=== PATIENT | male | born 1985 ===

== ENCOUNTER 2016-11-29 20:09 | Emergency (ER) | payer SELFPAY ==
[2016-11-29 20:20] VITALS: BP 113/75; PULSE 69; RESP 16; TEMP 98; O2SAT 98
--- NOTE | 2016-11-29 20:45 | ED PDOC ---
HPI: Back Time Seen by Provider: 11/29/16 20:20 Chief Complaint (Nursing): Back Pain Chief Complaint (Provider): Back Pain History Per: Patient History/Exam Limitations: no limitations Onset/Duration Of Symptoms: Days (x 1 month) Current Symptoms Are (Timing): Still Present Additional Complaint(s): Adán Morris is a 31 y/o male with no past medical history who presents to the ED complaining of back pain that radiates down the right leg with associated numbness, ongoing for 1 month. He states noticing symptoms after waking up one day with a bump on his back. He went to a [facility] and was prescribed muscle relaxers and Motrin with no imaging done. His pain has worsened, impeding his ability to walk. The pain is alleviated by laying down. Patient denies fever, nausea, vomiting, diarrhea, and injury to the back. If he forgets to take daily Motrin, he experiences groin pain. Sister reports the back mass has increased in size over the past month. 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 PMD: Unknown Past Medical History Reviewed: Historical Data, Nursing Documentation, Vital Signs Vital Signs: Last Vital Signs Temp 98 F 11/29/16 20:17 Pulse 69 11/29/16 20:17 Resp 16 11/29/16 20:17 BP 113/75 11/29/16 20:17 Pulse Ox 98 11/29/16 20:17 - Medical History PMH: No Chronic Diseases - Surgical History Surgical History: No Surg Hx - Family History Family History: States: Unknown Family Hx - Home Medications Home Medications: Ambulatory Orders Medication Instructions Recorded Cyclobenzaprine [Cyclobenzaprine 10 mg PO BID #14 tab 11/29/16 HCl] Ibuprofen [Motrin] 400 mg PO Q6 #30 tab 11/29/16 - Allergies Allergies/Adverse Reactions: Allergies Allergy/AdvReac Type Severity Reaction Status Date / Time No Known Allergies Allergy Verified 11/29/16 20:21 Review of Systems ROS Statement: Except As Marked, All Systems Reviewed And Found Negative Constitutional: Negative for: Fever, Other (Injury) Gastrointestinal: Negative for: Nausea, Vomiting, Abdominal Pain, Diarrhea Genitourinary Male: Negative for: Dysuria, Frequency Musculoskeletal: Positive for: Back Pain, Leg Pain (radiates down right leg) Neurological: Positive for: Numbness Physical Exam - Reviewed Nursing Documentation Reviewed: Yes Vital Signs Reviewed: Yes - Physical Exam Appears: Positive for: Non-toxic, No Acute Distress Head Exam: Positive for: ATRAUMATIC, NORMAL INSPECTION, NORMOCEPHALIC Skin: Positive for: Normal Color, Warm, Dry Eye Exam: Positive for: EOMI, Normal appearance, PERRL ENT: Positive for: Normal ENT Inspection Neck: Positive for: Normal, Painless ROM, Supple Cardiovascular/Chest: Positive for: Regular Rate, Rhythm. Negative for: Murmur Respiratory: Positive for: Normal Breath Sounds. Negative for: Accessory Muscle Use, Respiratory Distress Gastrointestinal/Abdominal: Positive for: Normal Exam, Soft. Negative for: Tenderness Back: Positive for: Vertebral Tenderness (Midline tenderness), Other (A non- mobile swelling is noted, 2 x 3 cm, at paravertebral lumbar region. No erythema) . Negative for: Normal Inspection Extremity: Positive for: Tenderness (Right leg, straight line) Neurologic/Psych: Positive for: Alert, Oriented - ECG O2 Sat by Pulse Oximetry: 98 (RA) Pulse Ox Interpretation: Normal Medical Decision Making Medical Decision Making: Time: 20:35 Initial Plan: --Ordered CT Lumbar Spine w/o contrast ct: IMPRESSION: 1. Tiny linear lucency along the right superior facet of S1 could possibly reflect fracture versus artifact. Clinical correlation recommended. 2. At L5-S1, disc bulge results in mild canal and mild bilateral foraminal stenosis. 3. At L4-L5, disc bulge results in mild canal and mild bilateral foraminal stenosis. Thank you for allowing us to participate in the care of your patient. Dictated and Authenticated by: Aston Chairez MD 11/29/2016 10:27 PM Eastern Time ([place] & [place]) PT advised to hacve f/u with pmd for referral to orthopedic spine and recommends pain mgnt and PTx. Pt givne Rx for motrin and flexril and advised to get stronger pain control in pain mgnt. Scribe Attestation: Documented by Carissa Govea, acting as a scribe for Giselle Bob PA-C. Provider Scribe Attestation: All medical record entries made by the Scribe were at my direction and personally dictated by me. I have reviewed the chart and agree that the record accurately reflects my personal performance of the history, physical exam, medical decision making, and the department course for this patient. I have also personally directed, reviewed, and agree with the discharge instructions and disposition. Disposition - Clinical Impression Clinical Impression: Bulging disc - Patient ED Disposition Is Patient to be Admitted: No Counseled Patient/Family Regarding: Studies Performed, Diagnosis, Need For Followup, Rx Given - Disposition Referrals: [facility] [Outside] [facility] [Outside] [facility] [Outside] Disposition: Routine/Home Disposition Time: 22:30 Condition: STABLE Prescriptions: Cyclobenzaprine [Cyclobenzaprine HCl] 10 mg PO BID #14 tab Ibuprofen [Motrin] 400 mg PO Q6 #30 tab Instructions: Lumbar Disc Herniation (ED) Forms: [facility] ED School/Work Excuse
[2016-11-29] MEDS ORDERED: Oxycodone/Acetaminophen 5/325 mg Tab PO STA (22:15)
[2016-11-29] MEDS ORDERED: Oxycodone/Acetaminophen 5/325 mg Tab ONE (22:16)
--- NOTE | 2016-11-30 08:57 | CT ---
PROCEDURE: CT Lumbar Spine without contrast HISTORY: lesion to midline with severe back pain COMPARISON: None. TECHNIQUE: Axial computed tomography images were obtained of the lumbar spine without the use of intravenous contrast. Coronal and sagittal reformatted images were created and reviewed. Radiation dose: Total exam DLP = 634 mGy-cm. This CT exam was performed using one or more of the following dose reduction techniques: Automated exposure control, adjustment of the mA and/or kV according to patient size, and/or use of iterative reconstruction technique. FINDINGS: VERTEBRAE: Unremarkable. No fracture. Normal alignment. DISCS/SPINAL CANAL/NEURAL FORAMINA: L1-2: Unremarkable. L2-3: Unremarkable. L3-4: Unremarkable. L4-5: Unremarkable. L5-S1: Unremarkable. PARASPINAL SOFT TISSUES: Unremarkable. OTHER FINDINGS: None. IMPRESSION: No fracture.
== END 2016-11-29 22:40 | disposition home or self-care (01) ==
LOC: H.ER 20:09
DX: M51.27 Other intervertebral disc displacement, lumbosacral region (principal)